=== PATIENT | male | born 1980 | race Two or more races ===

== ENCOUNTER 2017-08-30 23:06 | Inpatient (IN) | payer MEDICAID ==
[~2017-08-30] VITALS: Ht 188 cm; Wt 93.0 kg
[2017-08-30] MEDS ORDERED: Morphine Sulfate 4mg/ml Inj IVP ONE (23:45)
[2017-08-30] MEDS ORDERED: Isovue-300 100ml vial INJ PRN (23:45)
[2017-08-30 23:54] LABS: HEMATOCRIT 42.8 % (42.0-52.0); HEMOGLOBIN 15.1 G/DL (14.2-18.0); MEAN CORPUSCULAR VOLUME 91 FL (80-99); PLATELET COUNT 178 K/UL (150-450); RED BLOOD COUNT 4.72 M/UL (4.70-6.10); RED CELL DISTRIBUTION WIDTH 11.1 % (11.6-14.8); WHITE BLOOD COUNT 11.1 K/UL (4.8-10.8)
[2017-08-31] VITALS (8 sets, daily range): BP systolic 100–149; BP diastolic 59–93
[2017-08-31 00:03] LABS: ANION GAP 10 mmol/L (5-15); BLOOD UREA NITROGEN 18 mg/dL (7-18); CALCIUM 8.9 MG/DL (8.5-10.1); CARBON DIOXIDE 26 MMOL/L (21-32); CHLORIDE 105 MMOL/L (98-107); POTASSIUM 3.9 MMOL/L (3.5-5.1); SODIUM 141 MMOL/L (136-145)
[2017-08-31] MEDS ORDERED: GENTAMICIN SULF15 G2 TOPIC (00:15)
[2017-08-31] MEDS ORDERED: NITROGLYCERIN2.5 M1 PO (00:15)
[2017-08-31] MEDS ORDERED: ROCEPHIN250 MG PO (00:15)
[2017-08-31] MEDS ORDERED: LEVAQUIN500 MG ORAL (00:15)
[2017-08-31] MEDS ORDERED: Ertapenem 1 GM in NS 55 ML IV ONE (01:30)
--- NOTE | 2017-08-31 02:11 | Emergency Room Report ---
History of Present Illness General Chief Complaint: Skin Rash/Abscess Source: Patient Present Illness HPI Is a 37-year-old male with no past medical history. He presents with rectal pain for bilateral week. Increasing pain today. Saw his primary care doctor who suspect that he has a perirectal abscess. Patient received Rocephin and gentamicin in the office. He also prescribed Levaquin. Pain continue be severe. And he was sent in to be evaluated. No fever chills. No drainage. Patient denies any trauma or anal sexual intercourse. No fever or chills. Pain is 10 out of 10. Worse with sitting. Allergies: Coded Allergies: No Known Allergies (Unverified , 08/30/17) Patient History Past Medical History: none, see triage record, old chart reviewed Past Surgical History: none Pertinent Family History: none Social History: Denies: smoking Immunizations: other Reviewed Nursing Documentation: PMH: Agreed; PSxH: Agreed Review of Systems Eye: Denies: eye pain, blurred vision ENT: Denies: ear pain, nose congestion, throat swelling Respiratory: Denies: cough, shortness of breath Cardiovascular: Denies: chest pain, palpitations Gastrointestinal: Denies: abdominal pain, diarrhea, nausea, vomiting Musculoskeletal: Denies: back pain, joint pain Skin: Denies: rash Neurological: Denies: headache, numbness Endocrine: Denies: increased thirst, increased urine Hematologic/Lymphatic: Denies: easy bruising All Other Systems: negative except mentioned in HPI Physical Exam Vital Signs Date Time Temp Pulse Resp B/P (MAP) Pulse Ox O2 Delivery O2 Flow Rate FiO2 08/30/17 23:17 98.2 56 18 122/79 99 Room Air 98.2 vitals normal Sp02 EP Interpretation: reviewed, normal General Appearance: well appearing, no apparent distress, alert Head: normocephalic, atraumatic Eyes: bilateral eye PERRL, bilateral eye EOMI ENT: hearing grossly normal, normal pharynx Neck: full range of motion, supple, no meningismus Respiratory: chest non-tender, lungs clear, normal breath sounds Cardiovascular #1: regular rate, rhythm, no murmur Gastrointestinal: normal bowel sounds, non tender, no mass, no organomegaly, no bruit, non-distended Rectal: other - Rectal exam: Patient has severe tenderness to palpation. I see no obvious abscess. Unable to do digital exam because of pain. No redness. Musculoskeletal: back normal, gait/station normal, normal range of motion Psychiatric: mood/affect normal Skin: warm/dry Medical Decision Making Diagnostic Impression: Primary Impression: Perianal abscess ER Course Patient with a perianal abscess. This is seen on CT scan. Not accessible at bedside because of his pain. I cover him with antibiotics and will admit. I discussed with his doctor who does not admit here. Will admit to on-call with surgical consultation. I discussed case with Dr. Juares and Dr. Tavares. Lab Results Impression labs normal CT/MRI/US Diagnostic Results CT/MRI/US Diagnostic Results : Imaging Test Ordered: CT pelvis Impression Read by radiologist. There is a 3.4 x 1.5 x 2.8 cm abscess in anal area. Appendix normal. Last Vital Signs Date Time Temp Pulse Resp B/P (MAP) Pulse Ox O2 Delivery O2 Flow Rate FiO2 08/31/17 00:57 97.7 68 10 100/71 97 Room Air 97.7 Status: improved Disposition: ADMITTED INPATIENT Condition: Serious Referrals: NOT CHOSEN LELE/,REFERRING (PCP) AHSAN BARKER M.D. Aug 31, 2017 02:11
[2017-08-31] MEDS ORDERED: COLACE100 MG ORAL (05:07)
[2017-08-31] MEDS ORDERED: HEMMOREX-HC25 MG RC (05:07)
[2017-08-31] MEDS ORDERED: ACETAMINOP160 MG/54 ORAL (05:07)
[2017-08-31] MEDS ORDERED: OMEPRAZOLE40 M1 ORAL (05:07)
[2017-08-31] MEDS ORDERED: TRAMADOL HCL100 M2 ORAL (05:07)
[2017-08-31] MEDS ORDERED: Morphine Sulfate 4mg/ml Inj IVP PRN (06:45)
[2017-08-31] MEDS ORDERED: Milk of Magnesia 30ml Ud ORAL PRN (06:45)
[2017-08-31] MEDS ORDERED: Acetaminophen 500mg (ES) tab ORAL PRN (06:45)
[2017-08-31] MEDS ORDERED: Morphine Sulfate 2mg/ml Inj IVP PRN (06:45)
[2017-08-31] MEDS ORDERED: Zolpidem 5mg tab ORAL PRN (06:45)
[2017-08-31] MEDS: Morphine Sulfate 4mg/ml Inj IVP PRN ×5 (07:59→22:14)
--- NOTE | 2017-08-31 08:24 | History & Physical ---
History and Physical History & Physicial 37-year-old male with no past medical history. He presents with rectal pain and CT documented abcess. Increasing pain today. No fever chills. No drainage. Patient denies any trauma or anal sexual intercourse. No fever or chills. patient with significant pain Allergies: No Known Allergies (Unverified , 08/30/17) Past Medical History: none, Past Surgical History: none Pertinent Family History: none Social History: negative Reviewed of systems: otherwise negative Physical WDWN NAD clear breath sounds bilaterally without rhonchi or wheeze [id number] without MRG NABS nontender no HSM no CCE nonfocal tender rectal area Laboratory Tests Test 08/30/17 23:40 White Blood Count 11.1 K/UL (4.8-10.8) H Red Blood Count 4.72 M/UL (4.70-6.10) Hemoglobin 15.1 G/DL (14.2-18.0) Hematocrit 42.8 % (42.0-52.0) Mean Corpuscular Volume 91 FL (80-99) Mean Corpuscular Hemoglobin 32.0 PG (27.0-31.0) H Mean Corpuscular Hemoglobin Concent 35.3 G/DL (32.0-36.0) Red Cell Distribution Width 11.1 % (11.6-14.8) L Platelet Count 178 K/UL (150-450) Mean Platelet Volume 7.8 FL (6.5-10.1) Neutrophils (%) (Auto) % (45.0-75.0) Lymphocytes (%) (Auto) % (20.0-45.0) Monocytes (%) (Auto) % (1.0-10.0) Eosinophils (%) (Auto) % (0.0-3.0) Basophils (%) (Auto) % (0.0-2.0) Sodium Level 141 MMOL/L (136-145) Potassium Level 3.9 MMOL/L (3.5-5.1) Chloride Level 105 MMOL/L (98-107) Carbon Dioxide Level 26 MMOL/L (21-32) Anion Gap 10 mmol/L (5-15) Blood Urea Nitrogen 18 mg/dL (7-18) Creatinine 1.0 MG/DL (0.55-1.30) Estimat Glomerular Filtration Rate > 60 mL/min (>60) Glucose Level 139 MG/DL (74-106) H Calcium Level 8.9 MG/DL (8.5-10.1) IMPRESSION rectal abcess rectal pain PLAN iv antibiotics surgical evaluation check cultures dc once cleared and stable Raf Juares MD Aug 31, 2017 08:24
[2017-08-31] MEDS: Vancomycin 1250mg/D5W 250ml IVPB SCH ×2 (09:26→17:33)
[2017-08-31] MEDS: Piperacillin/Tazobactam 3.375 GM in D5W 110 ML IVPB SCH ×3 (09:26→22:04)
[2017-08-31] MEDS: Pantoprazole Inj IVP SCH (09:26)
--- NOTE | 2017-08-31 10:08 | Diagnostic Imaging Report ---
Indication: Abdominal pain, suspected rectal abscess Technique: No oral contrast, per emergency room physician request. IV administration nonionic contrast. Spiral acquisitions obtained through the pelvis. Multiplanar reconstructions generated. Total dose length product 592.83 mGycm. CTDIvol(s) 15.91 mGy. Dose reduction achieved using automated exposure control Comparison: none Findings: 3.4 x 1.1 x 2.3 cm gas and fluid collection is seen in the perineal midline immediately posterior to the anus. There is a small fat-containing umbilical hernia. The appendix is normal. There is a small right scrotal hydrocele The remaining visualized pelvic viscera are unremarkable Impression: 3.4 x 1.1 x 2.3 cm gas and fluid collection inferomedial midline immediately posterior to the anus, likely a small perianal abscess, given stated clinical history Incidental findings as noted This agrees with the preliminary interpretation provided overnight by [facility] teleradiology service. The CT scanner at [facility] is accredited by the [employer] and the scans are performed using protocols designed to limit radiation exposure to as low as reasonably achievable to attain images of sufficient resolution adequate for diagnostic evaluation.
[2017-08-31] MEDS ORDERED: Lidocaine 1% 10mg/ml/Epi 0.005mg/ml 30ml vial INJ ONE (12:45)
--- NOTE | 2017-08-31 14:34 | Consultation ---
History of Present Illness General Date patient seen: Aug 31, 2017 Chief Complaint: Skin Rash/Abscess Present Illness HPI 37M 1-2 week history of worsening rectal pain. worse with BM's. now cannot sit or walk without pain. no n/v/f/c. no bleeding. no prior events. came to ED for evaluate. had CT which demonstrated ira-rectal abscess. Allergies: Coded Allergies: No Known Allergies (Unverified , 08/30/17) Medication History Scheduled Acetaminophen* (Acetaminophen*), 500 MG ORAL Q6H, (Reported) Docusate Sodium* (Colace*), 100 MG ORAL DAILY, (Reported) Levofloxacin* (Levaquin*), 500 MG ORAL BID, (Reported) Omeprazole (Omeprazole), 40 MG ORAL DAILY, (Reported) Miscellaneous Medications Ceftriaxone Sod (Rocephin), 250 MG PO, (Reported) Gentamicin Sulfate (Gentamicin Sulfate*), 1 APPLIC TOPIC, (Reported) Hydrocortisone Acetate (Hemmorex-Hc), 25 MG RC, (Reported) Nitroglycerin (Nitroglycerin), 2.5 MG PO, (Reported) Tramadol Hcl (Tramadol Hcl), 50 MG ORAL, (Reported) Patient History History Provided By: Patient, Medical Record, PMD Healthcare decision maker Resuscitation status Full Code Advanced Directive on File Past Medical/Surgical History Past Medical/Surgical History: (1) Perianal abscess Review of Systems Constitutional: Denies: no symptoms, see HPI, chills, sweats, fever, malaise, weakness, other Eye: Denies: no symptoms, see HPI, eye pain, blurred vision, tearing, double vision, nose pain, nose congestion, acuity changes, discharge, other ENT: Denies: no symptoms, see HPI, ear pain, ear discharge, nose pain, nose congestion, throat pain, throat swelling, mouth pain, hearing loss, nasal discharge, other Respiratory: Denies: no symptoms, see HPI, cough, orthopnea, shortness of breath, stridor, wheezing, NATION, sputum, other Cardiovascular: Denies: no symptoms, see HPI, chest pain, edema, palpitations, syncope, PND, other Gastrointestinal: Denies: no symptoms, see HPI, abdominal pain, constipation, diarrhea, nausea, vomiting, melena, hematemesis, other Genitourinary: Denies: no symptoms, see HPI, discharge, dysuria, frequency, hematuria, pain, retention, incontinence, urgency, vag bleed/dc, other Musculoskeletal: Denies: no symptoms, see HPI, back pain, gout, joint pain, joint swelling, muscle pain, muscle stiffness, other Skin: Denies: no symptoms, see HPI, rash, change in color, change in hair/nails , dryness, lesions, other Psychiatric: Denies: no symptoms, see HPI, prior hx, anxiety, depressed feelings, emotional problems, SI, HI, hallucinations, other Neurological: Denies: no symptoms, see HPI, headache, numbness, paresthesia, seizure, tingling, tremors, focal weakness, syncope, dizziness, other Endocrine: Denies: no symptoms, see HPI, excessive sweating, flushing, intolerance to temperature, increased thirst, increased urine, unexplained weight loss, other Hematologic/Lymphatic: Denies: no symptoms, see HPI, anemia, blood clots, easy bleeding, easy bruising, swollen glands, diathesis, other All Other Systems: negative except mentioned in HPI Physical Exam General Appearance: no apparent distress, alert Lines, tubes and drains: peripheral HEENT: normocephalic, atraumatic, mucous membranes moist Neck: normal inspection Respiratory/Chest: normal breath sounds, no respiratory distress, no accessory muscle use Cardiovascular/Chest: normal peripheral pulses, normal rate Abdomen: normal bowel sounds, non tender, soft, no organomegaly, no mass Extremities: normal range of motion, non-tender, no calf tenderness Skin Exam: warm/dry Physical Exam Narrative moderate sized posterior perirectal / perianal abscess. tender on palpation. deep. erythema. edema. no drainage. Last 24 Hour Vital Signs Date Time Temp Pulse Resp B/P (MAP) Pulse Ox O2 Delivery O2 Flow Rate FiO2 08/31/17 12:55 97.5 08/31/17 11:43 97.5 67 18 106/69 96 97.5 08/31/17 08:50 97.3 54 18 117/71 96 97.3 08/31/17 03:20 97.9 55 20 130/87 100 Room Air 97.9 08/31/17 03:15 97.7 62 18 120/59 98 Room Air 97.7 08/31/17 03:15 62 18 120/59 98 Room Air 08/31/17 02:20 65 12 149/93 96 Room Air 08/31/17 00:57 97.7 68 10 100/71 97 Room Air 97.7 08/31/17 00:16 98.2 08/30/17 23:46 98.2 08/30/17 23:17 98.2 56 18 122/79 99 Room Air 98.2 Intake and Output 08/30/17 08/31/17 19:00 07:00 Intake Total 55 ml Balance 55 ml Intake IV Total 55 ml # Voids 3 Laboratory Tests Test 08/30/17 23:40 White Blood Count 11.1 K/UL (4.8-10.8) H Red Blood Count 4.72 M/UL (4.70-6.10) Hemoglobin 15.1 G/DL (14.2-18.0) Hematocrit 42.8 % (42.0-52.0) Mean Corpuscular Volume 91 FL (80-99) Mean Corpuscular Hemoglobin 32.0 PG (27.0-31.0) H Mean Corpuscular Hemoglobin Concent 35.3 G/DL (32.0-36.0) Red Cell Distribution Width 11.1 % (11.6-14.8) L Platelet Count 178 K/UL (150-450) Mean Platelet Volume 7.8 FL (6.5-10.1) Neutrophils (%) (Auto) % (45.0-75.0) Lymphocytes (%) (Auto) % (20.0-45.0) Monocytes (%) (Auto) % (1.0-10.0) Eosinophils (%) (Auto) % (0.0-3.0) Basophils (%) (Auto) % (0.0-2.0) Sodium Level 141 MMOL/L (136-145) Potassium Level 3.9 MMOL/L (3.5-5.1) Chloride Level 105 MMOL/L (98-107) Carbon Dioxide Level 26 MMOL/L (21-32) Anion Gap 10 mmol/L (5-15) Blood Urea Nitrogen 18 mg/dL (7-18) Creatinine 1.0 MG/DL (0.55-1.30) Estimat Glomerular Filtration Rate > 60 mL/min (>60) Glucose Level 139 MG/DL (74-106) H Calcium Level 8.9 MG/DL (8.5-10.1) Height (Feet): 6 Height (Inches): 2.00 Weight (Pounds): 205 Medications Current Medications Medications (Trade) Dose Ordered Sig/Jenifer Route PRN Reason Start Time Stop Time Status Last Admin Dose Admin Acetaminophen (Tylenol) 650 mg Q4H PRN ORAL Mild Pain/Temp > 100.5 08/31/17 06:45 09/30/17 06:44 Al Hydroxide/Mg Hydroxide (Mylanta) 30 ml EVERY 4 HOURS PRN ORAL heartburn 08/31/17 06:45 09/30/17 06:44 Iopamidol (Isovue-300 100ml) 100 ml NOW PRN INJ Radiology Procedure 08/30/17 23:45 09/01/17 23:36 Magnesium Hydroxide (Mom) 30 ml DAILYPRN PRN ORAL Constipation 08/31/17 06:45 09/30/17 06:44 Morphine Sulfate (Morphine Sulfate) 2 mg Q3H PRN IVP Mild Pain (Pain Scale 1-3) 08/31/17 06:45 09/07/17 06:44 Morphine Sulfate (Morphine Sulfate) 4 mg Q3H PRN IVP Moderate Pain (Pain Scale 4-6) 08/31/17 06:45 09/07/17 06:44 08/31/17 12:55 Morphine Sulfate (Morphine Sulfate) 6 mg Q3H PRN IVP Severe Pain (Pain Scale 7-10) 08/31/17 06:45 09/07/17 06:44 Pantoprazole (Protonix) 40 mg DAILY IVP 08/31/17 09:00 09/30/17 08:59 08/31/17 09:26 Piperacillin Sod/ Tazobactam Sod 3.375 gm/Dextrose 110 ml @ 27.5 mls/hr Q8HR IVPB 08/31/17 08:30 09/07/17 08:29 08/31/17 09:26 Sodium Chloride 1,000 ml @ 100 mls/hr Q10H IV 08/31/17 08:00 09/30/17 07:59 08/31/17 07:59 Vancomycin HCl (Vanco rx to dose) 1 ea DAILY PRN MISC Per rx protocol 08/31/17 08:00 09/30/17 07:59 Vancomycin HCl/ Dextrose 250 ml @ 166.667 mls/hr Q8H IVPB 08/31/17 09:00 09/05/17 08:59 08/31/17 09:26 Zolpidem Tartrate (Ambien) 5 mg HSPRN PRN ORAL Insomnia 08/31/17 06:45 09/07/17 06:44 Assessment/Plan Problem List: (1) Perianal abscess Assessment & Plan: 37M perirectal / perianal abscess. afebrile, leukocytosis, exam and CT as above. -bedside I&D today consent obtained. ICD Codes: K61.0 - Anal abscess SNOMED: [id number] Status: stable Golden Tavares Aug 31, 2017 14:34
--- NOTE | 2017-08-31 14:38 | Operative Note - PDOC ---
Operative Note Operative Note Date of Operation/Procedure: Aug 31, 2017 Pre-op Diagnosis: perirectal abscess Procedure: incision and drainage of ira-rectal abscess Post-op Diagnosis: same as pre-op Surgeon: lenore Anesthesia: local Specimen: yes - cultures Complications: none Condition: stable Fluids: n/a Estimated Blood Loss: minimal Drains: none Implant(s) used?: No Indications for Procedure 37M perirectal abscess for 1-2 weeks. worsening. refer to consult note. incision and drainage indicated and recommended. consent obtained. Description of Procedure patient made comfortable at bedside in the prone position. site cleaned and prepped in standard surgical fashion. rectal area draped. local anesthetic injected into proposed skin site. 1% lidocaine with epi used. using a fresh # 11 scalpel a cruciate incision was made in the posterior mid perianal area 1cm away from sphincter muscles. purulent drainage noted and cultured. cavity 3cm deep. abscess cavity irrigated until clean. packing and dressings applied. patient tolerated well. Golden Tavares Aug 31, 2017 14:38
[2017-09-01] VITALS: BP 98/61
[2017-09-01] MEDS: Vancomycin 1250mg/D5W 250ml IVPB SCH (01:12)
[2017-09-01 04:00] VITALS: BP 104/69
[2017-09-01] MEDS: Piperacillin/Tazobactam 3.375 GM in D5W 110 ML IVPB SCH (05:55)
[2017-09-01 08:25] LABS: EOSINOPHILS % (AUTO) 0.6 % (0.0-3.0); HEMATOCRIT 47.9 % (42.0-52.0); HEMOGLOBIN 16.5 G/DL (14.2-18.0); LYMPHOCYTES % (AUTO) 20.6 % (20.0-45.0); MEAN CORPUSCULAR VOLUME 91 FL (80-99); MONOCYTES % (AUTO) 7.3 % (1.0-10.0); NEUTROPHILS % (AUTO) 70.5 % (45.0-75.0); PLATELET COUNT 199 K/UL (150-450); RED BLOOD COUNT 5.28 M/UL (4.70-6.10); RED CELL DISTRIBUTION WIDTH 11.2 % (11.6-14.8); WHITE BLOOD COUNT 9.4 K/UL (4.8-10.8)
[2017-09-01 08:41] LABS: ANION GAP 11 mmol/L (5-15); BLOOD UREA NITROGEN 13 mg/dL (7-18); CALCIUM 8.7 MG/DL (8.5-10.1); CARBON DIOXIDE 25 MMOL/L (21-32); CHLORIDE 103 MMOL/L (98-107); CREATININE 1.2 MG/DL (0.55-1.30); POTASSIUM 3.2 MMOL/L (3.5-5.1); SODIUM 139 MMOL/L (136-145)
[2017-09-01 08:51] VITALS: BP 101/62
[2017-09-01] MEDS: Pantoprazole Inj IVP SCH (09:27)
[2017-09-01] MEDS ORDERED: Vancomycin 1250mg/D5W 250ml IVPB SCH (10:00)
--- NOTE | 2017-09-01 10:05 | General Progress Note ---
Assessment/Plan Assessment/Plan IMPRESSION rectal abcess rectal pain s/p I&D PLAN iv antibiotics surgical intervention noted cultures noted dc once cleared and stable Subjective Allergies: Coded Allergies: No Known Allergies (Unverified , 08/30/17) Objective Last 24 Hour Vital Signs Date Time Temp Pulse Resp B/P (MAP) Pulse Ox O2 Delivery O2 Flow Rate FiO2 09/01/17 08:51 98.2 53 16 101/62 99 Room Air 98.2 09/01/17 04:00 Room Air 09/01/17 04:00 98.7 56 16 104/69 95 Room Air 98.7 09/01/17 00:00 Room Air 09/01/17 00:00 99.0 58 16 98/61 93 Room Air 99.0 08/31/17 20:00 98.7 78 18 103/60 95 Room Air 98.7 08/31/17 20:00 Room Air 08/31/17 16:00 99.0 70 18 122/70 97 99.0 08/31/17 12:55 97.5 08/31/17 11:43 97.5 67 18 106/69 96 97.5 Intake and Output 08/31/17 09/01/17 19:00 07:00 Intake Total 340 ml 1500.000 ml Balance 340 ml 1500.000 ml Intake Oral 240 ml 740 ml IV Total 100 ml 760.000 ml # Voids 3 3 Laboratory Tests 09/01/17 07:50: White Blood Count 9.4, Red Blood Count 5.28, Hemoglobin 16.5, Hematocrit 47.9, Mean Corpuscular Volume 91, Mean Corpuscular Hemoglobin 31.2H, Mean Corpuscular Hemoglobin Concent 34.5, Red Cell Distribution Width 11.2L, Platelet Count 199, Mean Platelet Volume 8.0, Neutrophils (%) (Auto) 70.5, Lymphocytes (%) (Auto) 20.6, Monocytes (%) (Auto) 7.3, Eosinophils (%) (Auto) 0.6, Basophils (%) (Auto ) 1.0, Sodium Level 139, Potassium Level 3.2L, Chloride Level 103, Carbon Dioxide Level 25, Anion Gap 11, Blood Urea Nitrogen 13, Creatinine 1.2, Estimat Glomerular Filtration Rate > 60, Glucose Level 145H, Calcium Level 8.7, Vancomycin Level Trough 22.2H Height (Feet): 6 Height (Inches): 2.00 Weight (Pounds): 205 Objective WDWN NAD clear breath sounds bilaterally without rhonchi or wheeze [id number] without MRG NABS nontender no HSM no CCE nonfocal Raf Juares MD Sep 01, 2017 10:05
[2017-09-01 12:00] VITALS: BP 109/68
[2017-09-01] MEDS ORDERED: AUGMENTIN 875-1 EAC1 ORAL (13:34)
[2017-09-01] MEDS ORDERED: IBUPROFEN600 MG ORAL (13:35)
[2017-09-01] MEDS ORDERED: DOCUSATE SODIU100 M2 ORAL (13:35)
--- NOTE | 2017-09-01 14:08 | General Progress Note ---
Progress Note Progress Note Surgery: doing great. pain improved. no n/v/f/c. labs improved packing and dressings removed. dressings applied. wound c/d/i. -d/c home Rx written f/u 1 week Golden Tavares Sep 01, 2017 14:08
--- NOTE | 2017-09-01 20:30 | Consultation ---
DATE OF CONSULTATION: 09/01/2017 INFECTIOUS DISEASES CONSULTATION CONSULTING PHYSICIAN: Josh Braswell M.D. REFERRING PHYSICIAN: Raf Juares M.D. REASON FOR CONSULTATION: Perirectal abscess. HISTORY OF PRESENTING ILLNESS: This is a 37-year-old gentleman with no significant past medical history who came in with rectal pain. He was found to have an abscess. He underwent incision and drainage and an Infectious Diseases consultation has been obtained for antibiotics. PAST MEDICAL HISTORY: Perirectal abscess status post drainage. MEDICATIONS: As an inpatient, the patient is on vancomycin, Protonix, Zosyn, Tylenol, Ambien, Mylanta, milk of magnesia, morphine, iopamidol. ALLERGIES: No known drug allergies. SOCIAL HISTORY: No history of smoking, alcohol, or drug use. FAMILY HISTORY: Unknown. REVIEW OF SYSTEMS: Unable to obtain currently. PHYSICAL EXAMINATION: VITAL SIGNS: Temperature of 98.2, T-max of 99, pulse of 67, respiratory rate of 18, blood pressure 106/69, O2 saturation of 96%. HEENT: Pupils equally reactive to light and accommodation. Mouth appears clean without thrush. NECK: Supple. No adenopathy. No JVD. CARDIOVASCULAR: Regular rate and rhythm. No murmurs. LUNGS: Clear to auscultation bilaterally. No crackles. No wheezes. ABDOMEN: Soft and nontender. No organomegaly. EXTREMITIES: No cyanosis, no clubbing, no edema. LABORATORY AND DIAGNOSTIC DATA: White count 11.1 yesterday, white count 9.4 today, hemoglobin 16.4, hematocrit 47.9, MCV 91, and platelet count of 199 with neutrophils of 70%. Sodium 139, potassium 3.2, chloride 103, bicarbonate 25, BUN 13, creatinine 1.2, glucose 145, calcium 8.7. On 08/31/2017, wound culture growing gram-negative rods. CT pelvis showing 3.4 x 1.1 x 2.3 cm gas and fluid collection, inferomedial midline immediately posterior to the anus likely a small perianal abscess. ASSESSMENT: This is a 37-year-old gentleman with no significant past medical history who comes in with a perirectal abscess. He has undergone incision and drainage. The cultures are growing gram-negative rods. PLAN: 1. Continue IV vancomycin and Zosyn for now. 2. We will follow up cultures and adjust antibiotics accordingly. I would like to thank, Dr. Juares, for this consultation. Josh Braswell M.D. DR: Michela JOB#: [id number] CC: aRf Juares M.D.; Fax#: [phone]
--- NOTE | 2017-09-03 10:31 | Discharge Summary ---
Discharge Summary Discharge Summary _ DATE OF ADMISSION: 08/31/2017 DATE OF DISCHARGE: 09/01/2017 REASON FOR ADMISSION: 37 years old male without significant past medical history, presented with rectal pain for one week. He seen his primary care provider, who suspected that the patient had perirectal abscess. Patient received IV antibiotic Rocephin and gentamicin at the office. Patient was also prescribed Levaquin. Patient continued to have severe pain, 10 out of 10 , worse with sitting. Patient denied fever or chills. He denied drainage. He denied anal sexual intercourse or trauma. Laboratory workup revealed mild leukocytosis WBC 11.1 ; otherwise stable hemoglobin and hematocrit ,electrolytes, and renal parameters. CT of the pelvis revealed perirectal abscess. Patient admitted for further management with diagnosis of perirectal abscess, rectal pain. CONSULTANTS: ID specialist surgery Dr. Tavares [facility] HOSPITAL COURSE: Patient admitted to medical surgical floor. Patient started on the IV hydration and IV antibiotics. Surgeon seen and evaluated the patient . Patient subsequently undergone incision and drainage of perirectal abscess on . Infectious disease specialist closely followed. Wound culture revealed Escherichia coli ESBL and Staphylococcus pace. Pain management was addressed, and pain was controlled. Bowel regimen instituted. GI prophylaxis provided. Supportive care provided. Surgeon closely followed. On the first postoperative day pain improved. No nausea, vomiting, no fever, no chills; no leukocytosis . Packing and dressing were removed ,new dressing was applied ,wound clean, dry, and intact. Patient was stable for discharge home. Prescription provided for antibiotics and stool softener . Patient to follow-up with surgeon in one week. Due to the rapid and unexpected improvement in patient 's condition , patient was discharged in one day. FINAL DIAGNOSES: Perirectal abscess Status post incision and drainage of perirectal abscess Rectal pain, secondary to perirectal abscess - resolved DISCHARGE MEDICATIONS: See Medication Reconciliation list. Prescription provided by surgeon for antibiotic and stool softener DISCHARGE INSTRUCTIONS: Patient was discharged home. Discharge instruction provided by surgeon. Follow up with surgeon in one week I have been assigned to dictate discharge summary for this account. I was not involved in the patient's management. Kendra Skinner NP Sep 03, 2017 10:31
== END 2017-09-01 15:45 | disposition home or self-care (01) | DRG 223 ==
LOC: EMR 23:31 → EDBEDREQ 08-31 01:46 → 4W 08-31 02:25 → EDBEDREQ 08-31 02:47
PROC: 0D9P0ZZ Drainage of Rectum, Open Approach (ICD-10-PCS; principal; 2017-08-31)
DX: K61.1 Rectal abscess (principal)
CPT/HCPCS: 36415; 72193; 80048; 80202; 85025; 87070; 87075; 87181; 87205; 99285; J2405